=== PATIENT | male | born 1980 | race Caucasian/White ===

== ENCOUNTER → 2016-08-17 | Outpatient (CLI) | payer OTHER ==
[~2016-08-17] MED LIST: ANTIVERT 25MG25 MG PO; FLONASE NASAL S16 GM NS; METHADONE H10 MG/TAB PO; PEPCID AC 10MG10 MG; SUDAFED 12 HOU120 MG PO; SYMBICORT1 AE1; TYLENOL 325MG325 MG PO; VENTOLIN0.09 MG IH
== END ==
LOC: COL.RAD 13:51
DX: M25.562 Pain in left knee (principal); M25.561 Pain in right knee; M25.541 Pain in joints of right hand; M25.512 Pain in left shoulder